=== PATIENT | male | born 1940 ===

== ENCOUNTER 2018-05-24 03:03 | Inpatient (IN) ==
[2018-05-24] MEDS ORDERED: NOREPINEPHRINE 4 MG/4 ML VIAL IV ONE (04:33)
[2018-05-24] MEDS ORDERED: EPINEPHrine 1 MG/ML VIAL ONE ×2 (04:38→04:40)
[2018-05-24] MEDS ORDERED: SODIUM BICARBONATE 50 MEQ/50 ML SYRINGE IV ONE ×4 (04:47→06:19)
[2018-05-24] MEDS ORDERED: DOPamine 800 MG/250 ML PREMIX IV ONE (04:49)
[2018-05-24] MEDS ORDERED: EPINEPHrine 1 MG/10 ML SYRINGE IV ONE ×2 (04:57→06:18)
[2018-05-24] MEDS ORDERED: ONDANSETRON 4 MG/2 ML VIAL IV PRN (05:03)
[2018-05-24] MEDS ORDERED: PHENYLEPHRINE DRIP 40 MG/250 ML PREMIX IV ONE (05:04)
[2018-05-24] MEDS ORDERED: NOREPINEPHRINE 8 MG in SODIUM CHLORIDE 0.9% 242 ML IV PRN (05:06)
[2018-05-24] MEDS ORDERED: DOPamine 800 MG/250 ML PREMIX IV PRN (05:06)
[2018-05-24 05:07] LABS: ABG Base Excess 4.2 MMOL/L (-2.5-2.5); ABG HCO3 33.7 MMOL/L (20-26); ABG Oxygen Saturation 99.2 % (95-100); ABG PH 7.239 (7.35-7.45); ABG PO2 385.4 MM HG (80-95); ABG TCO2 36.2 MMOL/L (23-27); Glucose Heart Surgery 497 MG/DL (74-106); Hemoglobin Heart Surgery 11.4 G/DL (14.0-18.0)
[2018-05-24 05:08] LABS: ABG PCO2 80.6 MM HG (35-48); Potassium Heart/CVR 6.5 MMOL/L (3.5-5.1)
[2018-05-24] MEDS ORDERED: CALCIUM GLUCONATE 2,000 MG in SODIUM CHLORIDE 0.9% 100 ML IV ONE (05:08)
[2018-05-24] MEDS ORDERED: CALCIUM GLUCONATE 1,000 MG/10 ML VIAL IV ONE (05:09)
[2018-05-24] MEDS ORDERED: SODIUM POLYSTYRENE SULFATE 15 GM/60 ML BOTTLE PO ONE (05:09)
[2018-05-24] MEDS ORDERED: SODIUM CHLORIDE 0.9% 1,000 ML IV ONE (05:09)
[2018-05-24] MEDS ORDERED: PANTOPRAZOLE INJ 80 MG in SODIUM CHLORIDE 0.9% 100 ML IV ONE (05:10)
[2018-05-24] MEDS ORDERED: INSULIN REGULAR 100 UNIT/ML IV ONE (05:10)
[2018-05-24] MEDS ORDERED: SODIUM CHLORIDE 0.9% 1,000 ML IV PRN ×2 (05:11→05:30)
[2018-05-24] MEDS ORDERED: SODIUM POLYSTYRENE SULFATE 15 GM/60 ML BOTTLE RECTAL ONE (05:12)
[2018-05-24] MEDS ORDERED: PHENYLEPHRINE DRIP 40 MG/250 ML PREMIX IV PRN (05:15)
[2018-05-24] MEDS ORDERED: PHYTONADIONE 10 MG/1 ML AMP SUBCUT ONE (05:25)
[2018-05-24] MEDS ORDERED: SODIUM BICARB INJ 150 MEQ in DEXTROSE 5% 850 ML IV SCH (05:30)
[2018-05-24] MEDS ORDERED: PANTOPRAZOLE INJ 200 MG in SODIUM CHLORIDE 0.9% 250 ML IV SCH (05:30)
[2018-05-24] MEDS ORDERED: SODIUM CHLORIDE 0.9% 1,000 ML IV SCH (05:30)
[2018-05-24] MEDS ORDERED: GLUCAGON 1 MG VIAL IM PRN (05:31)
[2018-05-24] MEDS ORDERED: DEXTROSE 50% 25 GM/50 ML SYRINGE IV PRN (05:31)
[2018-05-24 05:34] LABS: Basophils # 0.1 10*3/uL (0.0-0.2); Basophils % 0.6 % (0.0-0.8); Eosinophils # 0.2 10*3/uL (0.0-0.87); Eosinophils % 1.5 % (0.00-10.9); Hematocrit 29.7 VOL% (42.0-52.0); Hemoglobin 9.4 GM/DL (14.0-18.0); Immature Granulocytes % 6.3 %; Immature Granulocytes Absolute 0.98 #; Lymphocytes # 3.9 10*3/uL (1.4-4.0); Lymphocytes % 24.9 % (21.2-54.2); Mean Corpuscular HGB Conc 31.6 GM/DL (32-36); Mean Corpuscular Hemoglobin 32 PG (27-34); Mean Platelet Volume 9.4 FL (9.6-12.0); Monocytes # 0.8 10*3/uL (0.11-0.8); Monocytes % 4.9 % (1.7-12.7); NRBC # 0.22 10*3/uL; Neutrophils # 9.7 10*3/uL (1.4-7.4); Neutrophils % 61.8 % (38.7-73.9); Platelet Count 163 T/CUMM (130-400); Red Blood Count 2.97 MC/CUMM (3.8-5.5); Red Cell Distribution Width 12.9 % (9.3-17.3); White Blood Count 15.7 T/CUMM (4-12)
[2018-05-24 05:46] LABS: INR 1.8; PT Patient Result 19.1 SECS
[2018-05-24 05:53] LABS: Band Neutrophils 6 % (0-10); Eosinophils 1 % (0-10); Hypochromasia Slight; Lymphocytes 31 % (20-55); Nucleated Red Blood Cells 2 (0-5); Platelet Estimate Adequate; Segmented Neutrophils 61 % (50-85); Total Cells Counted 100
[2018-05-24 05:56] LABS: Partial Thromboplastin Time 58.8 SECS (0-40)
[2018-05-24] MEDS ORDERED: PIPERACILLIN/TAZOBACTAM 3,375 MG in SODIUM CHLORIDE 0.9% 100 ML IV SCH (06:00)
[2018-05-24] MEDS ORDERED: INSULIN GLARGINE 100 UNIT/ML SUBCUT SCH (06:00)
[2018-05-24] MEDS ORDERED: INSULIN REGULAR 100 UNIT/ML SUBCUT SCH (06:00)
[2018-05-24 06:01] LABS: Fibrinogen Quant Value 86 MG% (200-400)
[2018-05-24 06:17] LABS: Bilirubin,Total 0.9 MG/DL (0.2-1.0); Osmolality,Calculated 311.6 MOS/KG (273-304); Thyroid Stimulating Hormone 3.57 uIU/ml (0.358-3.74); Total Protein 4.4 G/DL (6.4-8.3)
[2018-05-24] MEDS ORDERED: EPINEPHrine 1 MG/10 ML SYRINGE ONE (06:20)
[2018-05-24] MEDS ORDERED: MAGNESIUM SULFATE 1 GM/2 ML VIAL ONE (06:20)
[2018-05-24] MEDS ORDERED: AMIODARONE 150 MG/3 ML VIAL ONE (06:20)
[2018-05-24] MEDS ORDERED: SODIUM BICARBONATE 50 MEQ/50 ML VIAL IV ONE (06:20)
[2018-05-24 06:21] LABS: Potassium 6.1 MMOL/L (3.5-5.1)
[2018-05-24] MEDS ORDERED: SODIUM CHLORIDE 23.4% CONC INJ 38.5 MEQ, SODIUM BICARB INJ 100 MEQ in STERILE WATER INJ... IV SCH (06:30)
[2018-05-24 14:29] LABS: Hepatitis A Ab IgM Quant 0.18 Index; Hepatitis A Ab IgM Result Negative (Negative); Hepatitis B Core IgM Quant 0.11 Index; Hepatitis B Core IgM Result Negative (Negative); Hepatitis B Surface Ag Quant < 0.10 Index; Hepatitis B Surface Ag Result Negative (Negative); Hepatitis C Virus Ab Quant 0.03 Index; Hepatitis C Virus Ab Result Negative (Negative)
== END 2018-05-24 06:44 | disposition expired ==
LOC: N.ICU 04:26
PROVIDERS: ADMIT Family Medicine; ATTEND Family Medicine